=== PATIENT | female | born 1965 | race Caucasian/White ===

== ENCOUNTER 2019-03-12 09:14 | Day surgery (SDC) | payer OTHER ==
[2019-03-12] MEDS ORDERED: PROPOFOL 80 ML (11:34)
== END 2019-03-12 13:10 | disposition home or self-care (01) ==
LOC: GIL 09:14
DX: Z12.11 Encounter for screening for malignant neoplasm of colon (principal); K29.30 Chronic superficial gastritis without bleeding; D12.8 Benign neoplasm of rectum; K64.8 Other hemorrhoids; K64.4 Residual hemorrhoidal skin tags; E11.9 Type 2 diabetes mellitus without complications; J45.909 Unspecified asthma, uncomplicated
CPT/HCPCS: 43239; 82962; 88305; 88312